=== PATIENT | female | born 1940 | race Caucasian/White ===

== ENCOUNTER 2022-04-14 06:47 | Emergency (ER) | payer BC ==
[~2022-04-14] VITALS: Ht 157.5 cm; Wt 54.4 kg
[2022-04-14] MEDS ORDERED: MEMA10TA PO (07:02)
[2022-04-14] MEDS ORDERED: ATOR20TA PO (07:02)
[2022-04-14] MEDS ORDERED: CHOL10005 PO (07:02)
[2022-04-14] MEDS ORDERED: ACET-73 PO (07:02)
[2022-04-14] MEDS ORDERED: RIVA1PAT3 TD (07:02)
[2022-04-14] MEDS ORDERED: ESCI-9 PO (07:02)
[2022-04-14] MEDS ORDERED: QUET25TA PO (07:02)
[2022-04-14 07:18] LABS: HEMATOCRIT 36.4 % (31.2-41.9); MEAN CORPUSCULAR VOLUME 94.8 fL (75.5-95.3); PLATELET COUNT (AUTO) 288 K/uL (179-408)
[2022-04-14 07:28] LABS: CREATININE 0.6 mg/dL (0.6-1.3)
[2022-04-14] MEDS ORDERED: ACET-2605 PO (08:25)
[2022-04-14] MEDS ORDERED: ACETAMINOPHEN 650 MG/20.3 ML LIQUID UDC PO ONE (08:30)
[2022-04-14] MEDS ORDERED: IBUPROFEN 400 MG TABLET PO ONE (08:30)
[2022-04-14] MEDS ORDERED: QUETIAPINE FUMARATE 25 MG TABLET PO ONE (08:30)
[2022-04-14] MEDS ORDERED: IBUPROFEN 400 MG TABLET ONE (08:36)
[2022-04-14] MEDS ORDERED: QUETIAPINE FUMARATE 25 MG TABLET ONE (08:36)
[2022-04-14] MEDS ORDERED: ACETAMINOPHEN 325 MG TABLET ONE (08:36)
--- NOTE | 2022-04-14 08:55 | NUR ---
Per pt may be discharged back to [facility]. Spoke with Abby at [facility] via telephone, SBAR report given. Per Abby they do not have any transport that can pick the pt up from the ER.
--- NOTE | 2022-04-14 09:05 | NUR ---
Called [facility] for transport back to [facility], ETA [id number].
[2022-04-17] MEDS ORDERED: AMOX-430 PO (09:40)
== END 2022-04-14 09:41 ==
LOC: ER 06:57
DX: M25.551 Pain in right hip (principal); S09.90XA Unspecified injury of head, initial encounter; W06.XXXA Fall from bed, initial encounter; Y92.092 Bedroom in other non-institutional residence as the place of occurrence of the external cause; F03.90 Unspecified dementia, unspecified severity, without behavioral disturbance, psychotic disturbance, mood disturbance, and anxiety; E78.5 Hyperlipidemia, unspecified; Z79.899 Other long term (current) drug therapy; M19.90 Unspecified osteoarthritis, unspecified site; I44.7 Left bundle-branch block, unspecified
CPT/HCPCS: 36415; 70450; 71045; 73502; 85025; 85730; 93005; A4663

== ENCOUNTER 2022-04-14 22:20 | Inpatient (IN) | payer BC ==
[~2022-04-14] VITALS: Ht 157.5 cm; Wt 54.4 kg
[~2022-04-14 22:20] MED LIST: ACET-2605 PO; ACET-73 PO; ATOR20TA PO; CHOL10005 PO; ESCI-9 PO; MEMA10TA PO; QUET25TA PO; RIVA1PAT3 TD
[2022-04-15 00:19] LABS: *BLOOD, URINE 2+ (NEGATIVE); *COLOR,URINE YELLOW (YELLOW); *KETONES,URINE 1+ (NEGATIVE); *UROBILINOGEN,URINE 0.2 E.U./dl (NORMAL); LEUKOCYTE ESTERASE ,URINE 1+ (NEGATIVE); NITRITE, URINE POSITIVE (NEGATIVE); PH,URINE 5.5 (5.0-8.0); UGLUCOSE NEGATIVE (NEGATIVE)
[2022-04-15 00:21] LABS: *BILIRUBIN,URIN 1+ (NEGATIVE); *CLARITY,URINE CLOUDY (CLEAR)
[2022-04-15] MEDS ORDERED: CEFTRIAXONE /D5W 50ML IVPB **ER PYXIS IV ONE (00:37)
[2022-04-15] MEDS ORDERED: LORAZEPAM 2 MG/1 ML VIAL ONE (00:38)
[2022-04-15] MEDS ORDERED: HALOPERIDOL LACTATE 5 MG/1 ML VIAL ONE (00:38)
[2022-04-15] MEDS ORDERED: diphenhydrAMINE 50 MG/1 ML VIAL ONE (00:38)
[2022-04-15] MEDS ORDERED: diphenhydrAMINE 50 MG/1 ML VIAL IM ONE (00:45)
[2022-04-15] MEDS ORDERED: IV NS 1000 ML 1,000 ML IV ONE (00:45)
[2022-04-15] MEDS ORDERED: CEFTRIAXONE 1 G in IV DEXTROSE 5% 50 ML IV ONE (00:45)
[2022-04-15] MEDS ORDERED: HALOPERIDOL LACTATE 5 MG/1 ML VIAL IM ONE (00:45)
[2022-04-15] MEDS ORDERED: LORAZEPAM 2 MG/1 ML VIAL IM ONE (00:45)
[2022-04-15 02:05] LABS: RBC,URINE 50-80 /HPF (0-3)
[2022-04-15 02:06] LABS: BACTERIA,URINE MANY /HPF (NONE SEEN); SQUAMOUS EPITHELIAL CELL,UR MODERATE /HPF (NONE SEEN)
[2022-04-15] MEDS ORDERED: IV NS 1000 ML 1,000 ML IV PRN (02:30)
[2022-04-15] MEDS ORDERED: MAGNESIUM HYDROXIDE 30 ML LIQUID UDC PO PRN (02:30)
[2022-04-15] MEDS ORDERED: ONDANSETRON 4 MG/2 ML VIAL IV PRN (02:30)
[2022-04-15] MEDS ORDERED: REMEDY ESSENTIAL ZINC PASTE 113 GM TP PRN (02:30)
--- NOTE | 2022-04-15 02:53 | NUR ---
report given to Samanta DOE
--- NOTE | 2022-04-15 04:00 | NUR ---
Patient arrived from the ER by rogelio to med-surg unit room 301-B. Came in for UTI/multiple fall. AAOx1. No signs of distress or pain noted at this time. Four point soft restraints from ER were removed, patient is currently resting in bed fidgety and mobile. Left FA IV site is intact and patent, hep. lock. Initial assessment documented. Bed is locked, low position, bed alarm on, side rails up and low fowlers. Hygiene and comfort care was done. Plan of care to be followed for new admit.
--- NOTE | 2022-04-15 04:12 | NUR ---
Pt. admitted to M/S 301B , under care of [facility]ongs List completed Samanta RN aware of patient's arrival
[2022-04-15 04:30] VITALS: BP 145/79
[2022-04-15 07:26] LABS: CREATININE 0.6 mg/dL (0.6-1.3); MAGNESIUM 2.2 mg/dL (1.8-2.4); PHOSPHOROUS 1.9 mg/dL (2.5-4.9); POTASSIUM 3.7 mmol/L (3.5-5.1)
[2022-04-15 07:55] LABS: MEAN CORPUSCULAR HEMOGLOBIN 31.8 uug (24.7-32.8); MEAN CORPUSCULAR VOLUME 94.7 fL (75.5-95.3); PLATELET COUNT (AUTO) 253 K/uL (179-408)
[2022-04-15] MEDS ORDERED: RIVASTIGMINE 9.5 MG/ 24 HR 9.5 MG PATCH TD SCH (09:00)
[2022-04-15] MEDS ORDERED: ACETAMINOPHEN ES 500 MG TABLET- SA PATIENTS-PAIN ONLY PO PRN (11:15)
[2022-04-15] MEDS: IV D5/ 0.9% NACL 1,000 ML IV PRN (11:28)
[2022-04-15 11:42] VITALS: BP 156/69
[2022-04-15] MEDS: QUETIAPINE FUMARATE 25 MG TABLET PO SCH ×2 (12:03→17:17)
[2022-04-15] MEDS: ESCITALOPRAM OXALATE 10 MG TABLET PO SCH (12:07)
[2022-04-15] MEDS: RIVASTIGMINE 9.5 MG/ 24 HR 9.5 MG PATCH TD SCH (13:00)
[2022-04-15 15:40] VITALS: BP 155/68
[2022-04-15] MEDS ORDERED: POTASSIUM PHOSPHATE MM 15 MMOL in IV NORMAL SALINE 250 ML IV ONE (17:00)
[2022-04-15] MEDS: MEMANTINE HCL 10 MG TABLET PO SCH (17:17)
--- NOTE | 2022-04-15 19:30 | NUR ---
Received patient fidgety and occasionally yells in bed with daughter by bedside. Provided non-pharmacological pain management techniques which helped soothe the patient. Communicated concerns to the daughter, Mariella, and is aware of patient's condition and is up to date with plan of care that has been done and is being followed currently. Concerns were resolved and met. Plan to move from 301-B to 315 for closer surveillance and safety. Left FA IV site is intact and patent. D5NS currently running at 80cc/hr. Safety and comfort measured enforced.
[2022-04-15 20:16] VITALS: BP 130/84
[2022-04-15] MEDS: ATORVASTATIN 20 MG TABLET PO SCH (20:17)
[2022-04-15] MEDS: CEFTRIAXONE 1 G in IV DEXTROSE 5% 50 ML IV SCH (20:33)
[2022-04-15] MEDS: ACETAMINOPHEN 325 MG TABLET PO PRN (20:50)
[2022-04-16 04:09] VITALS: BP 150/65
--- NOTE | 2022-04-16 04:39 | NUR ---
Patient has opened her eyes, awake and is more verbal and mobile. Left forearm IV site was pulled out. Inserted new right FA IV site 22g. Will continue to monitor behavior.
[2022-04-16] MEDS: IV D5/ 0.9% NACL 1,000 ML IV PRN ×2 (04:46→16:32)
--- NOTE | 2022-04-16 06:20 | NUR ---
Patient is anxious and continues to yell. Continue plan of care. Safety and comfort measures maintained.
[2022-04-16] MEDS ORDERED: QUETIAPINE FUMARATE 25 MG TABLET PO ONE (06:30)
[2022-04-16] MEDS: ESCITALOPRAM OXALATE 10 MG TABLET PO SCH (08:06)
[2022-04-16] MEDS: QUETIAPINE FUMARATE 25 MG TABLET PO SCH ×3 (08:07→16:35)
[2022-04-16] MEDS: MEMANTINE HCL 10 MG TABLET PO SCH ×2 (08:07→16:35)
[2022-04-16] MEDS: RIVASTIGMINE 9.5 MG/ 24 HR 9.5 MG PATCH TD SCH (08:51)
[2022-04-16 11:46] VITALS: BP 155/78
[2022-04-16] MEDS: ACETAMINOPHEN 325 MG TABLET PO PRN (13:46)
[2022-04-16 16:38] VITALS: BP 151/70
[2022-04-16 20:00] VITALS: BP 144/72
[2022-04-16] MEDS: ATORVASTATIN 20 MG TABLET PO SCH (20:04)
[2022-04-16] MEDS: CEFTRIAXONE 1 G in IV DEXTROSE 5% 50 ML IV SCH (20:59)
[2022-04-17 04:24] VITALS: BP 161/80
[2022-04-17] MEDS: MEMANTINE HCL 10 MG TABLET PO SCH (08:21)
[2022-04-17] MEDS: QUETIAPINE FUMARATE 25 MG TABLET PO SCH ×2 (08:21→13:10)
[2022-04-17] MEDS: ESCITALOPRAM OXALATE 10 MG TABLET PO SCH (08:21)
[2022-04-17] MEDS: RIVASTIGMINE 9.5 MG/ 24 HR 9.5 MG PATCH TD SCH (08:50)
[2022-04-17] MEDS ORDERED: AMLODIPINE 5 MG TABLET PO SCH (09:00)
[2022-04-17] MEDS ORDERED: AMOX-430 PO (09:40)
[2022-04-17 11:53] VITALS: BP 144/86
--- NOTE | 2022-04-17 13:22 | NUR ---
dc orders received noted and carried out.dc heplock per md orders. dc instruction and dc paper given to the pt daughter.pt left the facility via ambulances in stable condition
== END 2022-04-17 13:30 | disposition home health service (06) | DRG 535 ==
LOC: ER 22:20 → MEDSURG3 04-15 03:30
PROVIDERS: ADMIT Internal Medicine; ATTEND Internal Medicine
DX: S32.511A Fracture of superior rim of right pubis, initial encounter for closed fracture (principal); G93.41 Metabolic encephalopathy; N39.0 Urinary tract infection, site not specified; S32.591A Other specified fracture of right pubis, initial encounter for closed fracture; R29.6 Repeated falls; E78.5 Hyperlipidemia, unspecified; G30.9 Alzheimer's disease, unspecified; F02.80 Dementia in other diseases classified elsewhere, unspecified severity, without behavioral disturbance, psychotic disturbance, mood disturbance, and anxiety; Z20.822 Contact with and (suspected) exposure to COVID-19; W19.XXXA Unspecified fall, initial encounter; Y93.9 Activity, unspecified; Y92.89 Other specified places as the place of occurrence of the external cause; S09.90XA Unspecified injury of head, initial encounter
CPT/HCPCS: 36415; 70450; 72170; 73502; 83735; 84100; 85025; A4663; A6209; A6213; C1758; G0378; J0696; J1200; J1630; J2060; J3490; J7040; J7042

== ENCOUNTER 2022-04-21 11:30 | Emergency (ER) | payer BC ==
[~2022-04-21] VITALS: Ht 157.5 cm; Wt 54.4 kg
[~2022-04-21 11:30] MED LIST changes: +AMOX-430 PO
[2022-04-21] MEDS ORDERED: DEXAMETHASONE SOD PHOSPHATE 4 MG INJ IV ONE (11:45)
[2022-04-21] MEDS ORDERED: DEXAMETHASONE SOD PHOSPHATE 10 MG INJ ONE (11:48)
[2022-04-21] MEDS ORDERED: AMOX-430 PO (12:09)
[2022-04-21] MEDS ORDERED: QUET25TA PO (12:09)
[2022-04-21] MEDS ORDERED: FAMOTIDINE. 20 MG/2 ML VIAL IV ONE ×2 (12:13→12:15)
--- NOTE | 2022-04-21 12:39 | NUR ---
Pt resting with NAD noted.
--- NOTE | 2022-04-21 13:20 | NUR ---
Per pt may be d/c back to [facility]. Called [facility] for transport, ETA 90 mins. Pt resting with NAD noted.
--- NOTE | 2022-04-21 15:10 | NUR ---
IV removed. Catheter intact and site benign. Pressure and 4x4 gauze applied to site. No bleeding noted.
--- NOTE | 2022-04-21 15:14 | NUR ---
Pt d/c back to [facility] via [facility], NAD Noted. SBAR report given to EMT.
== END 2022-04-21 15:48 ==
LOC: ER 11:31
DX: L50.0 Allergic urticaria (principal); F03.90 Unspecified dementia, unspecified severity, without behavioral disturbance, psychotic disturbance, mood disturbance, and anxiety; E78.5 Hyperlipidemia, unspecified; I44.7 Left bundle-branch block, unspecified; Z87.440 Personal history of urinary (tract) infections
CPT/HCPCS: 99284; 96374; 96375; J1100; J3490; A4663

== ENCOUNTER 2022-05-24 20:21 | Emergency (ER) | payer BC ==
[~2022-05-24] VITALS: Ht 162.6 cm; Wt 61.2 kg
[~2022-05-24 20:21] MED LIST changes: -ACET-2605 PO
--- NOTE | 2022-05-24 20:30 | NUR ---
Dr. Manzano evaluated patient at bedside. MSE in progress.
[2022-05-24 21:37] LABS: HEMATOCRIT 38.7 % (31.2-41.9); MEAN CORPUSCULAR HEMOGLOBIN 30.8 uug (24.7-32.8); MEAN CORPUSCULAR VOLUME 96.9 fL (75.5-95.3); PLATELET COUNT (AUTO) 397 K/uL (179-408)
[2022-05-24 21:42] LABS: CARBON DIOXIDE 27 mmol/L (21-32); CHLORIDE 106 mmol/L (98-107); CREATININE 1.2 mg/dL (0.6-1.3); GLUCOSE 106 mg/dL (74-106); POTASSIUM 4.5 mmol/L (3.5-5.1); UREA NITROGEN, BLOOD 35 mg/dL (7-18)
--- NOTE | 2022-05-24 22:08 | NUR ---
Patient is medically cleared by Dr. Manzano. Called [facility] for ambulance back to [facility]. ETA pharmacy picking tech time ~30-40min.
--- NOTE | 2022-05-24 22:15 | NUR ---
Spoke to Lynne DOE at [facility] regarding patient going back to facility.
--- NOTE | 2022-05-24 23:07 | NUR ---
Patient picked up by [facility] via [facility] with personal belongings. Patient in stable condition, no signs of distress.
--- NOTE | 2022-05-24 23:34 | NUR ---
Patient discharged to home in stable condition via [facility]. Written and verbal after care instructions given. Patient verbalizes understanding of instructions. Stressed follow up or return to ER for worsening s/s.
[2022-05-24 23:37] VITALS: BP 115/75
== END 2022-05-24 23:15 ==
LOC: ER 20:23
DX: Z04.3 Encounter for examination and observation following other accident (principal); F03.C0 Unspecified dementia, severe, without behavioral disturbance, psychotic disturbance, mood disturbance, and anxiety; W19.XXXA Unspecified fall, initial encounter; Y92.092 Bedroom in other non-institutional residence as the place of occurrence of the external cause; E78.5 Hyperlipidemia, unspecified; R29.6 Repeated falls; Z79.899 Other long term (current) drug therapy; I44.7 Left bundle-branch block, unspecified
CPT/HCPCS: 36415; 70450; 71045; 72170; 84484; 85025; 93005; A4663